=== PATIENT | female | born 1985 | race Caucasian/White ===

== ENCOUNTER 2018-12-02 06:51 | Outpatient (CLI) | payer OTHER ==
--- NOTE | 2018-12-02 08:05 | ULT ---
TRANSABDOMINAL AND TRANSVAGINAL PELVIC ULTRASOUND WITH GRAYSCALE AND COLORFLOW AND SPECTRAL DOPPLER I MAGING: HISTORY: Pelvic pain. FINDINGS: The uterus measures 13 x 5 x 5.8 cm with a hypoechoic mass, consistent with fibroid, measuring 1.8 x 1.6 x 1.5 cm. The endometrium measures 2 mm in thickness. No endometrial fluid is seen. Nabothian cysts are present in the cervix. The right ovary measures 3.3 x 2 x 2.2 cm, and the left ovary measures 2.1 x 1.8 x 1.9 cm. Flow is d emonstrated to both ovaries. No adnexal mass or free fluid in the cul-de-sac is seen. IMPRESSION: Uterine fibroid. POS: [id number]
== END 2018-12-02 06:52 | disposition home or self-care (01) ==
LOC: BICULT 06:51
PROVIDERS: ATTEND Family Medicine
DX: N92.3 Ovulation bleeding (principal); N94.0 Mittelschmerz; D25.9 Leiomyoma of uterus, unspecified
CPT/HCPCS: 76856